=== PATIENT | male | born 1985 | race American Indian/Alaskan Native ===

== ENCOUNTER 2017-02-10 15:24 | Emergency (ER) | payer MEDICAID ==
[2017-02-10 15:24] VITALS: BMI 31.7
[2017-02-10] MEDS ORDERED: Sodium Chloride 0.9% 1,000 ML IV SCH (16:00)
[2017-02-10 16:04] VITALS: TEMP 98.7
--- NOTE | 2017-02-10 16:04 | ED PDOC ---
Arrival/HPI - General Chief Complaint: Chest Pain Time Seen by Provider: 02/10/17 15:42 Historian: Patient - History of Present Illness Narrative History of Present Illness (Text): 02/10/17 16:02 31 y/o male, no pmh, nkda, drinks socially but non-smoker, no family history of CAD but father of colon cancer, nkda, c/o lt. sided chest pain x 2 hours while laying on the left lateral decubitus position. Pt. stated that the pain was sharp, lasted about half hour, no aggravating or reliving factors, no coughing or recent illness, no night sweat, no rash, no chest pain in the ER now , no urinary symptoms, no other medical or psychological complaints. Past Medical History - Provider Review Nursing Documentation Reviewed: Yes - Infectious Disease Hx of Infectious Diseases: None - Psychiatric Hx Depression: No Hx Emotional Abuse: No Hx Physical Abuse: No Hx Substance Use: No - Suicidal Assessment Feels Threatened In Home Enviroment: No Family/Social History - Physician Review Nursing Documentation Reviewed: Yes Family/Social History: Unknown Family HX Smoking Status: Never Smoked Hx Alcohol Use: No Hx Substance Use: No Allergies/Home Meds Allergies/Adverse Reactions: Allergies No Known Allergies Allergy (Verified 02/10/17 15:40) Home Medications: Home Meds Medication Instructions Recorded Confirmed No Known Home Med 02/10/17 02/10/17 Review of Systems - Review of Systems Constitutional: absent: Fatigue, Fevers Eyes: absent: Vision Changes ENT: absent: Hearing Changes Respiratory: absent: SOB, Cough Cardiovascular: Chest Pain Gastrointestinal: absent: Abdominal Pain, Nausea, Vomiting Musculoskeletal: absent: Arthralgias, Back Pain, Myalgias Skin: absent: Rash, Pruritis Physical Exam Vital Signs Reviewed: Yes Vital Signs Temp Pulse Resp BP Pulse Ox 02/10/17 20:00 70 17 130/75 98 02/10/17 18:35 68 18 125/78 99 02/10/17 16:03 98.7 F 78 17 134/84 99 02/10/17 15:35 98.2 F 72 16 134/84 99 Temperature: Afebrile Blood Pressure: Normal Pulse: Regular Respiratory Rate: Normal Appearance: Positive for: Well-Appearing, Non-Toxic, Comfortable Pain Distress: None Mental Status: Positive for: Alert and Oriented X 3 - Systems Exam Head: Present: Atraumatic, Normocephalic Pupils: Present: PERRL Extroacular Muscles: Present: EOMI Conjunctiva: Present: Normal Mouth: Present: Moist Mucous Membranes Neck: Present: Normal Range of Motion Respiratory/Chest: Present: Clear to Auscultation, Good Air Exchange. No: Respiratory Distress, Accessory Muscle Use, Wheezes, Decreased Breath Sounds, Rales, Retracting, Rhonchi, Tachypneic, Tender to Palpation Cardiovascular: Present: Regular Rate and Rhythm, Normal S1, S2, Other (no pedal edema). No: Murmurs Abdomen: Present: Normal Bowel Sounds. No: Tenderness, Distention, Peritoneal Signs Back: Present: Normal Inspection Upper Extremity: Present: Normal Inspection. No: Cyanosis, Edema Lower Extremity: Present: Normal Inspection. No: Edema Neurological: Present: GCS=15, Speech Normal, Motor Func Grossly Intact, Gait Normal, Memory Normal Skin: Present: Warm, Dry, Normal Color. No: Rashes Psychiatric: Present: Alert, Oriented x 3, Normal Insight, Normal Concentration Medical Decision Making ED Course and Treatment: 02/10/17 16:05 -labs -ekg/cxr -cardiac rn -observe and reassess 02/10/17 20:33 -EKG: NSR @ 68 BPM, early repolarization noted on the lead V2 and V3, no ST elevation or depression, no previous ekg available for comparison. -Chest xray show no active disease -Pt. is asymptomatic now with no pain medication given. -Labs are non-significant, negative dimer, negative tropinin x 2, asymptomatic, advised avoid all caffeine/energy drinks, avoid gym and exercise until clear by the marketing finance specialist. -Case discussed and examined with DR. Leary, he agreed to discharge home. Pt. agreed on to be discharged home. -Discharge home with education on follow up with your own pmd and marketing finance specialist within 2 days, avoid gym/exercise/caffeine products until clear by the marketing finance specialist,return to the ER for any new or worsening signs or symptoms. - Lab Interpretations Lab Results: 02/10/17 16:05 02/10/17 16:05 Lab Results 02/10/17 20:00: Lactate Dehydrogenase 463, Total Creatine Kinase 286 H, CK-MB ( CK-2) 2.4, CK-MB (CK-2) % Cancelled, Troponin I < 0.01 02/10/17 17:10: Urine Opiates Screen Negative, Urine Methadone Screen Negative, Ur Barbiturates Screen Negative, Ur Phencyclidine Scrn Negative, Ur Amphetamines Screen Negative, U Benzodiazepines Scrn Negative, U Oth Cocaine Metabols Negative, U Cannabinoids Screen Negative 02/10/17 17:10: Urine Color Yellow, Urine Appearance Clear, Urine pH 7.0, Ur Specific [place] 1.015, Urine Protein Negative, Urine Glucose (UA) Negative, Urine Ketones Negative, Urine Blood Negative, Urine Nitrate Negative, Urine Bilirubin Negative, Urine Urobilinogen 0.2, Ur Leukocyte Esterase Negative 02/10/17 16:05: Sodium 138, Potassium 4.3, Chloride 101, Carbon Dioxide 26, Anion Gap 15, BUN 16, Creatinine 1.0, Est GFR ( Amer) > 60, Est GFR (Non- Af Amer) > 60, Random Glucose 98, Calcium 9.5, Total Bilirubin 0.7, AST 44, ALT 32, Alkaline Phosphatase 64, Lactate Dehydrogenase 516, Total Creatine Kinase 294 H, CK-MB (CK-2) 2.6, CK-MB (CK-2) % Cancelled, Troponin I < 0.01, Total Protein 7.5, Albumin 4.2, Globulin 3.3, Albumin/Globulin Ratio 1.3, Lipase 75 02/10/17 16:05: D-Dimer, Quantitative 0.22 02/10/17 16:05: WBC 4.9 D, RBC 4.78, Hgb 14.1, Hct 41.2 L, MCV 86.2, MCH 29.5, MCHC 34.2, RDW 13.5, Plt Count 232, MPV 9.6, Gran % 52.6, Lymph % (Auto) 35.5 H , [place] % (Auto) 8.4 H, Eos % (Auto) 3.3, Baso % (Auto) 0.2, Gran # 2.56, Lymph # 1.7, [place] # 0.4, Eos # 0.2, Baso # 0.01 I have reviewed the lab results: Yes Interpretation: No clinic. lab abnormalty - RAD Interpretation Radiology Orders: 02/10/17 15:49 CHEST PORTABLE [RAD] Stat No active disease Crepe Laminator Operator: Radiologist - EKG Interpretation EKG Interpretation (Text): 02/10/17 20:33 -EKG: NSR @ 68 BPM, early repolarization noted on the lead V2 and V3, no ST elevation or depression, no previous ekg available for comparison. Interpreted by ED Physician: Yes Type: 12 lead EKG Comparison: Com.w/previous EKG - Medication Orders Current Medication Orders: Discontinued Medications Sodium Chloride (Sodium Chloride 0.9%) 1,000 mls @ 250 mls/hr IV .Q4H [place] Last Admin: 02/10/17 16:16 Dose: 250 mls/hr - PA / BUTCHER HELPER / Resident Statement MD/DO has reviewed & agrees with the documentation as recorded. Disposition/Present on Arrival - Present on Arrival Any Indicators Present on Arrival: No History of DVT/PE: No History of Uncontrolled Diabetes: No Urinary Catheter: No History of Decub. Ulcer: No History Surgical Site Infection Following: None - Disposition Have Diagnosis and Disposition been Completed?: Yes Diagnosis: Chest pain Disposition: HOME/ ROUTINE Disposition Time: 20:43 Patient Plan: Discharge Condition: GOOD Discharge Instructions (ExitCare): Chest Pain (ED) Additional Instructions: -Discharge home with education on follow up with your own pmd and marketing finance specialist within 2 days, avoid gym/exercise/caffeine products until clear by the marketing finance specialist,return to the ER for any new or worsening signs or symptoms. Referrals: Nemesio Estrada MD [Staff Provider] - Follow up with primary Forms: [employer] ([place]), WORK NOTE
[2017-02-10 16:17] LABS: ADD MANUAL DIFF? NO
[2017-02-10 16:23] LABS: BASO # 0.01 K/mm3 (0.0-2.0); BASO % 0.2 % (0.0-3.0); EOS # 0.2 (0.0-0.7); EOS % 3.3 % (1.5-5.0); GRAN # 2.56 (1.4-6.5); GRAN % 52.6 % (50.0-68.0); HEMATOCRIT 41.2 % (42.0-52.0); LYMPH # 1.7 (1.2-3.4); LYMPH % 35.5 % (22.0-35.0); MEAN CELL VOLUME 86.2 fL (80.0-105.0); MEAN CORPUSCULAR HEMOGLOBIN 29.5 pg (25.0-35.0); MEAN CORPUSCULAR HGB CONC 34.2 g/dl (31.0-37.0); MEAN PLATELET VOLUME 9.6 fl (7.0-11.0); MONO # 0.4 (0.1-0.6); MONO % 8.4 % (1.0-6.0); PLATELET COUNT 232 10^3/uL (120.0-450.0); RED CELL DISTRIBUTION WIDTH 13.5 % (11.5-14.5); WHITE BLOOD COUNT 4.9 10^3/ul (4.5-11.0)
--- NOTE | 2017-02-10 16:28 | RAD ---
HISTORY: chest pain COMPARISON: 08/03/2016. FINDINGS: LUNGS: The lungs are well inflated and clear. PLEURA: No significant pleural effusion identified, no pneumothorax apparent. CARDIOVASCULAR: Normal. OSSEOUS STRUCTURES: No significant abnormalities. VISUALIZED UPPER ABDOMEN: Normal. OTHER FINDINGS: None. IMPRESSION: No active pulmonary disease.
[2017-02-10 16:32] LABS: ALB/GLOB RATIO 1.3 (1.1-1.8); ALKALINE PHOSPHATASE 64 U/L (38-133); ALT/SGPT 32 U/L (7-56); AST/SGOT 44 U/L (15-59); BILIRUBIN,TOTAL 0.7 mg/dL (0.2-1.3); BLOOD UREA NITROGEN 16 mg/dL (7-21); CALCIUM 9.5 mg/dL (8.4-10.5); CARBON DIOXIDE 26 mmol/L (21-33); CHLORIDE 101 mmol/L (98-107); GFR AFRICAN-AMERICAN > 60; GLUCOSE,RANDOM 98 mg/dL (70-110); LIPASE 75 U/L (23-300); POTASSIUM 4.3 mmol/L (3.6-5.0); SODIUM 138 mmol/L (132-148); TOTAL PROTEIN 7.5 g/dL (5.8-8.3)
[2017-02-10 16:44] LABS: TROPONIN I < 0.01 ng/mL
[2017-02-10 18:32] LABS: URINE BILIRUBIN NEGATIVE (NEGATIVE); URINE BLOOD NEGATIVE (NEGATIVE); URINE GLUCOSE (UA) NEGATIVE (NEGATIVE); URINE KETONE NEGATIVE (NEGATIVE); URINE LEUKOCYTE ESTERASE NEGATIVE Leu/uL (NEGATIVE); URINE PROTEIN NEGATIVE mg/dL (<30 mg/dL); URINE UROBILINOGEN 0.2 E.U./dL (<1 E.U./dL)
[2017-02-10 18:34] LABS: URINE APPEARANCE CLEAR (CLEAR); URINE COLOR YELLOW (YELLOW)
[2017-02-10 20:23] LABS: TROPONIN I < 0.01 ng/mL
[2017-02-11 00:50] VITALS: BP 130/75; PULSE 70; RESP 17; O2SAT 98
--- NOTE | 2017-02-11 09:47 | CARD ---
APPROVED REPORT EKG Measurement Heart [id number] <Conclusion> Normal sinus rhythm ST elevation, consider early repolarization, pericarditis, or injury Suggest clinical correlation
== END 2017-02-10 20:55 | disposition home or self-care (01) ==
LOC: ED 15:24
DX: R07.9 Chest pain, unspecified (principal)
CPT/HCPCS: 71010; 80053; 80324; 80345; 80346; 80349; 80353; 80358; 80361; 81003; 82550; 82553; 83615; 83690; 83992; 84484; 85025; 85378; 93005; 99284; J7040